=== PATIENT | female | born 1960 | race African-American/Black ===

== ENCOUNTER 2016-11-13 16:50 | Inpatient (IN) | payer MEDICARE ==
[2016-11-13] MEDS ORDERED: fentaNYL (PF) 50 MCG/ML 2 ML AMP ONE (16:56)
[2016-11-13] MEDS ORDERED: LIDOCAINE 2% INJ 20 MG/ML (20 ML MDV) ONE (16:56)
[2016-11-13] MEDS ORDERED: diphenhydrAMINE 50 MG/ML 1 ML VIAL ONE (16:56)
[2016-11-13] MEDS ORDERED: MIDAZOLAM 2 MG/2 ML VIAL ONE (16:56)
[2016-11-13] MEDS ORDERED: HYDROmorphone 1 MG/ML 1 ML SYRINGE IVP STA (16:58)
[2016-11-13] MEDS ORDERED: TICAGRELOR 90 MG TAB PO ONE (17:05)
[2016-11-13] MEDS ORDERED: IV FLUID CONTINUATION 1,000 ML IV ONE (17:05)
--- NOTE | 2016-11-13 17:08 | ED ---
Chest Pain HPI - General Chief Complaint: Chest Pain Stated Complaint: Stemi Time Seen by Provider: 11/13/16 16:50 Source: patient, family, RN/MD, EMS, RN notes reviewed Mode of arrival: EMS Limitations: no limitations - History of Present Illness Initial Comments: Is a 56-year-old female history of type 2 diabetes but no prior history of heart disease she is a nonsmoker no personal history of any lung problems who started having pain in her arms last evening today she had chest pain it was anterior. She went to [facility] and was evaluated there and found to have an anterior lateral ST elevation myocardial infarction. Cardiology was consulted the patient was transferred here for Signing Teacher. Patient was brought to this emergency Department is the cath team was being assembled. She complained of 9/10 retrosternal chest pain and pressure. She had no nausea or vomiting at this time she was treated for that earlier. She was started on a bolus of heparin was given morphine no nitroglycerin at the time. Patient was evaluated in the emergency department Dr. Burgos did come to the emergency department see the patient. Patient was ultimately taken to the labor relations specialist for evaluation. MD Complaint: chest pain - Related Data Allergies Allergy/AdvReac Type Severity Reaction Status Date / Time naproxen [From Aleve] Allergy Anaphylaxis Verified 11/13/16 16:53 Review of Systems ROS Statement: Those systems with pertinent positive or pertinent negative responses have been documented in the HPI. ROS Other: All systems not noted in ROS Statement are negative. EKG Findings - EKG Results: EKG: interpreted by ERMD (Sinus rhythm of 91 NM interval 184 QRS duration 136 QT /QTC of 368/[address] elevation seen in leads V1 and V2 and aVL leads 1 and some reciprocal changes noted in the inferior leads.) Past Medical History Past Medical History: Diabetes Mellitus Additional Past Medical History / Comment(s): anemia, back pain, ibs History of Any Multi-Drug Resistant Organisms: None Reported Past Surgical History: No Surgical Hx Reported Past Psychological History: No Psychological Hx Reported Smoking Status: Former smoker Past Alcohol Use History: None Reported Past Drug Use History: None Reported General Exam - General Exam Comments Initial Comments: This is a well-developed well-nourished awake alert oriented 3 female Limitations: no limitations General appearance: anxious, in distress Head exam: Present: atraumatic, normocephalic, normal inspection Eye exam: Present: normal appearance, PERRL, EOMI. Absent: scleral icterus, conjunctival injection, periorbital swelling ENT exam: Present: normal exam, mucous membranes moist Neck exam: Present: normal inspection. Absent: tenderness, meningismus, lymphadenopathy Respiratory exam: Present: normal lung sounds bilaterally. Absent: respiratory distress, wheezes, rales, rhonchi, stridor Cardiovascular Exam: Present: regular rate, normal rhythm, normal heart sounds. Absent: systolic murmur, diastolic murmur, rubs, gallop, clicks GI/Abdominal exam: Present: soft, normal bowel sounds, other (Obese abdomen). Absent: distended, tenderness, guarding, rebound, rigid Extremities exam: Present: normal inspection, full ROM, normal capillary refill. Absent: tenderness, pedal edema, joint swelling, calf tenderness Back exam: Present: normal inspection Neurological exam: Present: alert, oriented X3, CN II-XII intact Psychiatric exam: Present: normal affect, normal mood Skin exam: Present: warm, dry, intact, normal color. Absent: rash Course Vital Signs 11/13/16 16:53 Respiratory 18 Rate Blood Pressure 130/81 - Reevaluation(s) Reevaluation #1: 11/13/16 17:05 Did review the 12-lead EKG submitted by EMS which did show ST elevations in V1 and V2 V3 as well as leads 1 and lead aVL. Reciprocal changes noted in II, III , and F aVF. Reevaluation #2: 11/13/16 17:06 Nitropaste as well as IV Dilaudid was ordered for further pain control the patient blood pressure was adequate. Chest Pain MDM - MDM ER charting from the other facility was reviewed by me. I did review the 12- lead EKGs both from [facility] and that submitted by EMS. The patient was taken to the Signing Teacher 3 for definitive care. I did have a long discussion with her regarding the findings. Critical Care Time Critical Care Time: Yes Critical Care Time: 31 minutes which included discussion with the sending facility and physician. Monitoring EMS run and discussed with paramedics. History and physical and initial evaluation the patient in this emergency department. Discussion with cardiology. Documentation of the above. Disposition Clinical Impression: ST elevation myocardial infarction (STEMI), Chest pain Disposition: ADMITTED IP TO THIS HOSP Condition: Critical
[2016-11-13] MEDS ORDERED: TICAGRELOR 90 MG TAB ONE (17:09)
[2016-11-13] MEDS ORDERED: fentaNYL (PF) 50 MCG/ML 2 ML AMP IV ONE (17:10)
[2016-11-13] MEDS ORDERED: diphenhydrAMINE 50 MG/ML 1 ML VIAL IVP ONE (17:10)
[2016-11-13] MEDS ORDERED: MIDAZOLAM 2 MG/2 ML VIAL IVP ONE (17:10)
[2016-11-13] MEDS ORDERED: LIDOCAINE 2% INJ 20 MG/ML SQ ONE (17:12)
[2016-11-13] MEDS ORDERED: SODIUM CHLORIDE 0.9% 1,000 ML IV ONE (17:15)
[2016-11-13] MEDS ORDERED: METOPROLOL TARTRATE 5 MG/5 ML VIAL IVP ONE ×2 (17:17→17:18)
[2016-11-13] MEDS ORDERED: BIVALIRUDIN BOLUS 250 MG/50 ML IV ONE (17:25)
[2016-11-13] MEDS ORDERED: BIVALIRUDIN 250 MG in SODIUM CHLORIDE 0.9% 50 ML IV ONE ×2 (17:28→18:00)
[2016-11-13] MEDS ORDERED: niCARdipine Syringe (1,000 mcg/10 mL) INTRACORON ONE (18:02)
[2016-11-13] MEDS ORDERED: IODIXANOL 320 MG/ML 100 ML INTRAARTER ONE (18:14)
[2016-11-13] MEDS ORDERED: RX INFO: IV CONTRAST WAS GIVEN 1 EACH MISC MISCELLANE PRN (18:41)
[2016-11-13] MEDS ORDERED: MAG HYDROX/AL HYDROX/SIMETH 30 ML CUP PO PRN (18:41)
[2016-11-13] MEDS ORDERED: NITROGLYCERIN SL TABS 0.4 MG TAB SUBLINGUAL PRN (18:41)
[2016-11-13] MEDS ORDERED: ZOLPIDEM 5 MG TAB PO PRN (18:41)
[2016-11-13] MEDS ORDERED: SODIUM CHLORIDE 0.9% 1,000 ML IV SCH (18:45)
[2016-11-13 19:35] LABS: Glucose,Whole Blood 179 mg/dL (75-99)
[2016-11-13] MEDS ORDERED: ALPRAZolam 0.25 MG TAB PO PRN (21:03)
[2016-11-13] MEDS ORDERED: TEMAZEPAM 15 MG CAP PO PRN (21:03)
[2016-11-13 21:10] LABS: Glucose,Whole Blood 167 mg/dL (75-99)
[2016-11-13] MEDS: BACLOFEN 10 MG TAB PO SCH (21:58)
[2016-11-13] MEDS: ATORVASTATIN 80 MG TAB PO SCH (21:58)
[2016-11-13] MEDS: METOPROLOL TARTRATE 25 MG TAB PO SCH (21:58)
[2016-11-13] MEDS: HYDROcodone/APAP 5-325MG 1 EACH TAB PO PRN (21:58)
[2016-11-13] MEDS: PANTOPRAZOLE 40 MG TABLET PO SCH (21:58)
[2016-11-13] MEDS: INSULIN LISPRO (humaLOG) 300 UNIT/3 ML VIAL SQ SCH (21:59)
[2016-11-13 22:43] VITALS: BMI 35.6
[2016-11-13 22:51] LABS: Basophils % (A) 0 %; CH 25.7; CHCM 31.5; Eosinophils # (A) 0.1 k/uL (0-0.7); Eosinophils % (A) 1 %; HDW 2.46; HGB 13.4 gm/dL (11.4-16.0); Hypochromasia Slight; Luc # (Auto) 0.12; Luc % (Auto) 1; Lymphocytes # (A) 1.4 k/uL (1.0-4.8); Lymphocytes % (A) 13 %; MCH 24.4 pg (25.0-35.0); MCHC 29.9 g/dL (31.0-37.0); MCV 81.8 fL (80.0-100.0); Mean Platelet Volume 7.8; Monocytes # (A) 0.5 k/uL (0-1.0); Monocytes % (A) 5 %; Neutrophils # (A) 8.6 k/uL (1.3-7.7); Neutrophils % (A) 80 %; RDW 14.8 % (11.5-15.5); WBC 10.8 k/uL (3.8-10.6); WBC (Perox) 11.56
[2016-11-13 23:11] LABS: ALT 106 U/L (9-52); AST 664 U/L (14-36); Alkaline Phosphatase 91 U/L (38-126); Anion Gap 13 mmol/L; Blood Urea Nitrogen 13 mg/dL (7-17); Calcium 9.5 mg/dL (8.4-10.2); Carbon Dioxide 21 mmol/L (22-30); Chloride 107 mmol/L (98-107); Glucose 190 mg/dL (74-99); Non-African American GFR(MDRD) >60 (>60 ml/min/1.73 sqM); Potassium 4.6 mmol/L (3.5-5.1); Sodium 141 mmol/L (137-145); Total Bilirubin 0.5 mg/dL (0.2-1.3); Total Protein 6.9 g/dL (6.3-8.2)
[2016-11-14] MEDS: HYDROmorphone 1 MG/ML 1 ML SYRINGE IVP PRN ×2 (02:14→22:28)
[2016-11-14 05:00] LABS: Basophils % (A) 0 %; CH 25.2; CHCM 31.3; Eosinophils % (A) 0 %; HCT 43.9 % (34.0-46.0); HDW 2.45; HGB 13.5 gm/dL (11.4-16.0); Hypochromasia Slight; Luc # (Auto) 0.15; Luc % (Auto) 1; Lymphocytes # (A) 1.5 k/uL (1.0-4.8); Lymphocytes % (A) 13 %; MCH 24.8 pg (25.0-35.0); MCHC 30.7 g/dL (31.0-37.0); MCV 80.9 fL (80.0-100.0); Mean Platelet Volume 7.9; Monocytes # (A) 0.6 k/uL (0-1.0); Monocytes % (A) 6 %; Neutrophils % (A) 79 %; RBC 5.43 m/uL (3.80-5.40); RDW 14.7 % (11.5-15.5); WBC 11.4 k/uL (3.8-10.6); WBC (Perox) 11.48
[2016-11-14 05:19] LABS: Anion Gap 12 mmol/L; Blood Urea Nitrogen 13 mg/dL (7-17); Calcium 9.3 mg/dL (8.4-10.2); Carbon Dioxide 20 mmol/L (22-30); Chloride 109 mmol/L (98-107); Cholesterol 182 mg/dL (<200); Glucose 174 mg/dL (74-99); HDL Cholesterol 59 mg/dL (40-60); Magnesium 1.8 mg/dL (1.6-2.3); Non-African American GFR(MDRD) >60 (>60 ml/min/1.73 sqM); Sodium 141 mmol/L (137-145); Triglycerides 80 mg/dL (<150)
[2016-11-14] MEDS: MAGNESIUM SULFATE-D5W PMX 1 GM in DEXTROSE/WATER 1 100ML.BAG IVPB SCH ×2 (06:21→08:00)
[2016-11-14 07:27] LABS: Glucose,Whole Blood 192 mg/dL (75-99)
--- NOTE | 2016-11-14 07:48 | XR ---
EXAMINATION TYPE: XR chest 1V portable DATE OF EXAM: 11/14/2016 6:47 AM CLINICAL HISTORY: Difficulty breathing and CHF progress study. TECHNIQUE: Single AP portable upright view of the chest is obtained. COMPARISON: None FINDINGS: The heart size is likely enlarged. There is mild central vascular congestion felt present. There is no suspicious focal airspace opacity, pleural effusion, or pneumothorax seen. Osseous struc tures are intact. IMPRESSION: Consider CHF exacerbation as there is mild cardiomegaly with mild central vascular conges tion felt present.
[2016-11-14] MEDS: INSULIN LISPRO (humaLOG) 300 UNIT/3 ML VIAL SQ SCH ×4 (08:00→22:29)
[2016-11-14] MEDS: BACLOFEN 10 MG TAB PO SCH ×3 (08:01→22:29)
[2016-11-14] MEDS: TICAGRELOR 90 MG TAB PO SCH ×2 (08:01→22:29)
[2016-11-14] MEDS: PANTOPRAZOLE 40 MG TABLET PO SCH (08:01)
[2016-11-14] MEDS: ASPIRIN 81 MG CHEW PO SCH (08:01)
[2016-11-14] MEDS: METOPROLOL TARTRATE 25 MG TAB PO SCH (08:44)
[2016-11-14] MEDS: LISINOPRIL 10 MG TAB PO SCH (09:49)
[2016-11-14] MEDS: HYDROcodone/APAP 5-325MG 1 EACH TAB PO PRN ×2 (09:56→19:41)
--- NOTE | 2016-11-14 10:35 | CONS ---
DATE OF CONSULTATION: Mrs. Dempsey is 54-year-old female who transfer from [facility]. The patient presented to the emergency room with back pain and shoulder pain and vomiting. This patient presented to the emergency room with the complaint of back pain and shoulder pain. The patient was feeling nauseated. Patient did not feel that she did not have any significant shortness of breath and did not complain of any chest pain. This patient has a history of diabetes, IBS and a history of anemia. SOCIAL HISTORY: Patient does not smoke. FAMILY HISTORY: Unremarkable. There is no family history of premature coronary artery disease. Home medications are not available. PHYSICAL EXAMINATION: At present reveals a 54-year-old obesely built female who at present is having moderate degree of back pain. Blood pressure is 160/90 mmHg HEENT examination is negative. Neck is supple. There is no increase in jugular venous pressure. Both the carotid pulses are felt. There is no bruit. Chest is symmetrical. HEART: The PMI is not felt. First and second heart sounds are normal. There is no evidence of any murmur. Lungs are clinically clear to auscultation and percussion. ABDOMEN: Soft. Liver and spleen are not enlarged. Bowel sounds are heard. EXTREMITIES: Peripheral pulsations are 1+. EKG shows evidence of acute anterior wall myocardial infarction with a right bundle branch block pattern. FINAL IMPRESSION: This patient has presented with back pain and shoulder pain. EKG is suggestive of acute anterior wall myocardial infarction. Patient is advised urgent cardiac catheterization.
[2016-11-14 11:24] LABS: Glucose,Whole Blood 186 mg/dL (75-99)
--- NOTE | 2016-11-14 11:35 | ECHOF ---
Referral Reason:stemi MEASUREMENTS -------- HEIGHT: 165.1 cm WEIGHT: 96.6 kg BP: 149/86 RVIDd: 2.6 cm (< 3.3) IVSd: 1.4 cm (0.6 - 1.1) LVIDd: 3.6 cm (3.9 - 5.3) LVPWd: 1.3 cm (0.6 - 1.1) IVSs: 1.6 cm LVIDs: 3.1 cm LVPWs: 1.6 cm LA Diam: 3.0 cm (2.7 - 3.8) LAESV Index (A-L): 16.68 ml/m Ao Diam: 2.9 cm (2.0 - 3.7) AV Cusp: 1.9 cm (1.5 - 2.6) MV EXCURSION: 15.792 mm (> 18.000) MV EF SLOPE: 156 mm/s (70 - 150) EPSS: 1.0 cm MV E Kp: 1.16 m/s MV DecT: 83 ms MV A Kp: 0.50 m/s MV E/A Ratio: 2.34 RAP: 5.00 mmHg RVSP: 33.76 mmHg FINDINGS -------- Resting tachycardia (HR>100bpm). This was a technically adequate study. The left ventricular size is normal. There is moderate concentric left ventricular hypertrophy. Overall left ventricular systolic function is severely impaired with, an EF between 20 - 25 %. Mid lateral LV wall motion is hypokinetic. Mid inferoseptal LV wall motion is hypokinetic. Mid anteroseptal LV wall motion is hypokinetic. Apical anterior LV wall motion is akinetic. Apical lateral LV wall motion is akinetic. Apical inferior LV wall motion is akinetic. Apical septum LV wall motion is akinetic. The right ventricle is normal in size and function. The left atrium is normal in size. Normal LA size by volume 22+/-6 ml/m2. The right atrium is normal in size. 1.5mg of Definity was utilized for enhancement of images The aortic valve is trileaflet and appears structurally normal. Mild mitral annular calcification present. There is trace mitral regurgitation. Mild tricuspid regurgitation present. Right ventricular systolic pressure is normal at < 35 mmHg. The right ventricular systolic pressure, as measured by Doppler, is 33.76mmHg. Trace/mild (physiologic) pulmonic regurgitation. The aortic root size is normal. There is no pericardial effusion. CONCLUSIONS -------- 1. Resting tachycardia (HR>100bpm). 2. Apical lateral LV wall motion is akinetic. 3. Apical inferior LV wall motion is akinetic. 4. Apical septum LV wall motion is akinetic. 5. The right ventricle is normal in size and function. 6. Normal LA size by volume 22+/-6 ml/m2. 7. The right atrium is normal in size. 8. 1.5mg of Definity was utilized for enhancement of images 9. The aortic valve is trileaflet and appears structurally normal. 10. Mild mitral annular calcification present. 11. There is trace mitral regurgitation. 12. This was a technically adequate study. 13. Mild tricuspid regurgitation present. 14. Right ventricular systolic pressure is normal at < 35 mmHg. 15. The right ventricular systolic pressure, as measured by Doppler, is 33.76mmHg. 16. Trace/mild (physiologic) pulmonic regurgitation. 17. The aortic root size is normal. 18. There is no pericardial effusion. 19. The left ventricular size is normal. 20. There is moderate concentric left ventricular hypertrophy. 21. Overall left ventricular systolic function is severely impaired with, an EF between 20 - 25 %. 22. Mid lateral LV wall motion is hypokinetic. 23. Mid inferoseptal LV wall motion is hypokinetic. 24. Mid anteroseptal LV wall motion is hypokinetic. 25. Apical anterior LV wall motion is akinetic. COUNSELING CENTER MANAGER: Elmira Almanza RDCS
[2016-11-14] MEDS: FERROUS SULFATE 325 MG TAB PO SCH (12:35)
[2016-11-14 12:46] LABS: Hemoglobin A1C 7.6 % (4.2-6.1)
--- NOTE | 2016-11-14 15:13 | P.PN ---
Subjective Principal diagnosis: Acute anterior ST elevation NM This is a pleasant 56-year-old -Ind[place] female patient who presented to the hospital with a chest discomfort and was diagnosed with acute anterior ST patient myocardial infarction. She underwent a heart catheterization and was found to have acute total occlusion of the ostial LAD which was opened and stented with a good angiographic results. Clinically she denies having any chest pain or discomfort or difficulty breathing or heart racing or fluttering. The echocardiogram showed severely impaired LV function with an ejection fraction of 20-25%. Objective - Vital Signs Vital signs: Vital Signs Temp 98.1 F 11/14/16 12:00 Pulse 110 H 11/14/16 15:00 Resp 24 11/14/16 15:00 BP 123/78 11/14/16 15:00 Pulse Ox 94 L 11/14/16 15:00 Intake & Output 11/13/16 11/14/16 11/14/16 18:59 06:59 18:59 Intake Total 318 1160 100 Output Total 1250 275 Balance 318 -90 -175 Weight 96.9 kg Intake: IV 318 1100 100 Magnesium Sulfate-D5w Pmx 100 100 1 gm In Dextrose/Water 1 100ml.bag @ 100 mls/hr IVPB Q1H PAMELA Rx#: [id number] Sodium Chloride 0.9% 1, 1000 000 ml @ 100 mls/hr IV . Q10H PAMELA Rx#:[id number] Oral 60 Output: Urine 1250 275 Other: Voiding Method Bedpan Bedside Commode # Voids 1 - Constitutional General appearance: Present: no acute distress - Respiratory Respiratory: bilateral: CTA - Cardiovascular Rhythm: regular Heart sounds: normal: S1, S2 - Labs CBC & Chem 7: 11/14/16 04:08 11/14/16 04:08 Labs: Abnormal Lab Results - Last 24 Hours (Table) 11/13/16 11/13/16 11/13/16 Range/Units 19:33 21:07 22:38 WBC 10.8 H (3.8-10.6) k/uL RBC 5.50 H (3.80-5.40) m/uL MCH 24.4 L (25.0-35.0) pg MCHC 29.9 L (31.0-37.0) g/dL Neutrophils # 8.6 H (1.3-7.7) k/uL Chloride (98-107) mmol/L Carbon Dioxide (22-30) mmol/L Glucose (74-99) mg/dL POC Glucose (mg/dL) 179 H 167 H (75-99) mg/dL Hemoglobin A1c (4.2-6.1) % AST (14-36) U/L ALT (9-52) U/L LDL Cholesterol, Calc (0-99) mg/dL 11/13/16 11/14/16 11/14/16 Range/Units 22:38 04:08 04:08 WBC 11.4 H (3.8-10.6) k/uL RBC 5.43 H (3.80-5.40) m/uL MCH 24.8 L (25.0-35.0) pg MCHC 30.7 L (31.0-37.0) g/dL Neutrophils # 9.0 H (1.3-7.7) k/uL Chloride (98-107) mmol/L Carbon Dioxide 21 L (22-30) mmol/L Glucose 190 H (74-99) mg/dL POC Glucose (mg/dL) (75-99) mg/dL Hemoglobin A1c 7.6 H (4.2-6.1) % AST 664 H (14-36) U/L ALT 106 H (9-52) U/L LDL Cholesterol, Calc (0-99) mg/dL 11/14/16 11/14/16 11/14/16 Range/Units 04:08 07:24 11:21 WBC (3.8-10.6) k/uL RBC (3.80-5.40) m/uL MCH (25.0-35.0) pg MCHC (31.0-37.0) g/dL Neutrophils # (1.3-7.7) k/uL Chloride 109 H (98-107) mmol/L Carbon Dioxide 20 L (22-30) mmol/L Glucose 174 H (74-99) mg/dL POC Glucose (mg/dL) 192 H 186 H (75-99) mg/dL Hemoglobin A1c (4.2-6.1) % AST (14-36) U/L ALT (9-52) U/L LDL Cholesterol, Calc 107 H (0-99) mg/dL Assessment and Plan Plan: Assessment #1 acute anterior NM and status post PCI of the LAD #2 severe ischemic cardiomyopathy Plan #1 continue the dual antiplatelet therapy #2 increase the dose of metoprolol for better heart rate control #3 ICU monitoring for additional 24 hours
[2016-11-14] MEDS ORDERED: METOPROLOL TARTRATE 25 MG TAB PO ONE (15:15)
[2016-11-14 17:47] LABS: Appearance,Urine Cloudy (Clear); Bacteria,Urine Moderate /hpf; Bilirubin,Urine Negative (Negative); Glucose,Urine (UA) Negative (Negative); Ketones,Urine Negative (Negative); Leukocyte Esterase,Urine Negative (Negative); Mucus,Urine Occasional /hpf; Nitrite,Urine Negative (Negative); PH, Urine 6.5 (5.0-8.0); Particle Count 54107; Protein,Urine Negative (Negative); RBC,Urine >182 /hpf (0-5); Squamous Epithelial Cell,Urine 5 /hpf (0-4); UA Billing (MACRO vs. MICRO) MICRO; Urobilinogen,Urine <2.0 mg/dL (<2.0); WBC,Urine 5 /hpf (0-5)
--- NOTE | 2016-11-14 17:47 | HP ---
DATE OF ADMISSION: 11/13/2016 CHIEF COMPLAINT: Chest pain, back pain and abdominal pain and shoulder pain. HISTORY OF PRESENT ILLNESS: This 56-year-old woman with a past medical history of diabetes, history of anemia, history of back pain, being followed by Dr. Quijano in the outpatient setting, today had severe back pain, shoulder pain, left arm pain and abdominal pain. The patient came to [facility]. The EKG showed hyperacute anterior wall myocardial infarction. The patient underwent a cardiac catheterization and LAD stent. The patient being closely monitored in the ICU at this time. There is no history of fever, rigors or chills. No history of headache, loss of consciousness or seizures. No history of any hematochezia, melena at this time. Past medical history: Diabetes, anemia, back pain. History of nicotine dependence. MEDICATIONS: Prior to admission includes: 1. Glucophage 500 mg p.o. b.i.d. 2. Iron sulfate 320 mg daily. 3. Lioresal 10 mg t.i.d. ALLERGIES: NAPROSYN. FAMILY HISTORY: History of coronary artery disease in the father and mother. SOCIAL HISTORY: Remote history of smoking. No history of alcohol intake. REVIEW OF SYSTEMS: HEENT: No diminished vision. No diminished hearing. CARDIOVASCULAR: As mentioned earlier. RESPIRATORY: As mentioned earlier. GI: No nausea or vomiting. : No dysuria. Nervous system: No numbness or weakness. Allergy/immunology: No asthma or hayfever. MUSCULOSKELETAL: As mentioned earlier. HEMATOLOGY/ONCOLOGY: No history of anemia. ENDOCRINE: As mentioned earlier. CONSTITUTIONAL: As mentioned earlier. DERMATOLOGY: Negative. RHEUMATOLOGY: Negative. PSYCHIATRY: As mentioned earlier. PHYSICAL EXAMINATION: The patient is alert and oriented times three. Pulse is 95, blood pressure 130/83, respirations 20, temperature 97.9, pulse ox 94% on 2 L. HEENT: Conjunctivae normal. NECK: No jugular venous distention. CARDIOVASCULAR: S1, S2 muffled. RESPIRATORY: Breath sounds diminished at the bases. No rhonchi, no crackles. ABDOMEN: Soft, nontender. No mass palpable. LEGS: No edema. No swelling. CENTRAL NERVOUS SYSTEM: Higher functions as mentioned earlier. Moves all four limbs. No focal deficits. LYMPHATICS: No lymph nodes palpable in the neck, axillae or groin. SKIN: No ulcer, rash or bleeding. LABS: Glucose 179. ASSESSMENT: 1. Acute anterior myocardial infarction, status post cardiac catheterization and left anterior descending coronary artery stenting. 2. Type 2 diabetes mellitus. 3. Remote history of nicotine dependence. 4. History of degenerative joint disease and back pain. 5. History of anemia. 6. FULL CODE. RECOMMENDATIONS AND DISCUSSION: In this 56-year-old gentleman who was admitted with acute myocardial infarction, at this time, I recommend to continue current medications, continue symptomatic treatment. Cardiology has seen the patient. I recommend Accu-Cheks a.c. and insulin to scale also. Continue with bella inhibitors and beta blockers as well as Lipitor. Dual antiplatelet treatment. Closely follow with cardiology. Prognosis guarded. See orders for further details. Resume the home medications. DVT prophylaxis. A copy of dictation being forwarded to Dr. Quijano who is the primary care physician. Discussed with the patient who understands and agrees.
--- NOTE | 2016-11-14 18:18 | CC ---
DATE OF SERVICE: This patient presented to the [facility] with chest pain. EKG was suggestive of acute anterior wall myocardial infarction and the patient was transferred over here and was taken to the cardiac catheterization. PROCEDURE: The right groin was prepped and draped in the usual manner and the skin was infiltrated with 2% Xylocaine. The right femoral artery was entered using Seldinger technique. A #6 Guyanese sheath was placed in. Selective coronary angiography was then performed in multiple. SELECTIVE CORONARY ANGIOGRAPHY: LEFT MAIN: Left main coronary artery is normal and patent. There is a nondominant circumflex coronary artery. CIRCUMFLEX CORONARY ARTERY: Circumflex coronary artery nondominant and is normal. LEFT ANTERIOR DESCENDING CORONARY ARTERY: LAD is a good caliber blood vessel and there is a good-sized intermediate branch and ostial LAD and proximal LAD has clot in its proximal midportion with 99% stenosis. There is a slow filling of the distal LAD noted. RIGHT CORONARY ARTERY: Right coronary arteries are normal caliber blood vessels and gives rise to good-sized posterior descending artery. Right coronary artery and its branches are normal. FINAL IMPRESSION: This study reveals a 99% stenosis of the proximal LAD with evidence of clot, a remote possibility of dissection could be considered. Circumflex coronary artery is nondominant. Right coronary artery is normal. RECOMMENDATIONS: Films were reviewed with Dr. Romo and we will proceed to attempt stent to the LAD.
[2016-11-14 18:27] LABS: Glucose,Whole Blood 174 mg/dL (75-99)
--- NOTE | 2016-11-14 18:41 | PTCA ---
DATE OF SERVICE: 11/13/2016 PERFORMING PHYSICIAN: Carlo Romo M.D., sales administration specialist. PROCEDURES PERFORMED: 1. Aspiration thrombectomy from the proximal left anterior descending artery. 2. Successful stenting of the proximal left anterior descending artery using a 3.0 x 18 mm Xience JOSHUA which was post dilated using 3.5 mm noncompliant balloon, with good angiographic results. INDICATION: This is a pleasant 56-year-old -Vietnamese female patient with diabetes who presented to [facility] with chest discomfort and was thought to have an acute anterior ST-elevation myocardial infarction. She underwent a heart catheterization by Dr. Jesse Burgos and was found to have a totally occluded proximal left anterior descending artery by the ostium with thrombus formation. APPROACH: Right common femoral artery. COMPLICATIONS: None. LEVEL OF SEDATION: Moderate. PROCEDURE DESCRIPTION: Please refer to the diagnostic heart catheterization that was performed by Dr. Jesse Burgos. Anticoagulation was initiated using Angiomax. Subsequently I engaged the left main using a JL4 catheter. Subsequently I crossed the total occlusion of the proximal LAD using a Whisper wire. After that I did aspiration thrombectomy from the proximal left anterior descending artery using an [place] catheter. After that I did balloon angioplasty of the proximal LAD using a 2.5 x 12 mm balloon. After that I deployed a 3.0 x 18 mm Xience JOSHUA, where the stent was positioned under fluoroscopic guidance and then it was deployed under its nominal pressure. After that I post dilated that stent using a 3.5 x 12 mm NC balloon which was inflated under 18 atmospheres for 20 seconds. The following angiogram showed good angiographic results without perforation and without dissection with MELISSA-3 flow. CONCLUSION: 1. Acute anterior ST-elevation myocardial infarction. 2. Acute total occlusion of the ostial left anterior descending artery with a plaque rupture and thrombus formation. 3. Successful aspiration thrombectomy from the proximal left anterior descending artery. 4. Successful stenting of the ostial and proximal left anterior descending artery using a 3.0 x 18 mm JOSHUA which was post dilated using a 3.5 mm balloon with good angiographic results. POST-PROCEDURE MANAGEMENT: 1. Dual antiplatelet therapy. 2. Risk factor modification. 3. Followup with the patient.
[2016-11-14 22:26] LABS: Glucose,Whole Blood 133 mg/dL (75-99)
[2016-11-14] MEDS: ATORVASTATIN 80 MG TAB PO SCH (22:29)
[2016-11-14] MEDS: METOPROLOL TARTRATE 50 MG TAB PO SCH (22:29)
[2016-11-15 05:00] LABS: Basophils # (A) 0.1 k/uL (0-0.2); Basophils % (A) 0 %; CHCM 31.2; Eosinophils # (A) 0.1 k/uL (0-0.7); Eosinophils % (A) 1 %; HCT 45.7 % (34.0-46.0); HDW 2.42; HGB 14.1 gm/dL (11.4-16.0); Hypochromasia Slight; Luc # (Auto) 0.23; Luc % (Auto) 2; Lymphocytes # (A) 1.4 k/uL (1.0-4.8); Lymphocytes % (A) 10 %; MCH 24.9 pg (25.0-35.0); MCHC 30.9 g/dL (31.0-37.0); MCV 80.5 fL (80.0-100.0); Monocytes # (A) 0.9 k/uL (0-1.0); Monocytes % (A) 6 %; Neutrophils # (A) 11.8 k/uL (1.3-7.7); Neutrophils % (A) 82 %; RBC 5.68 m/uL (3.80-5.40); RDW 14.6 % (11.5-15.5); WBC 14.4 k/uL (3.8-10.6); WBC (Perox) 14.58
[2016-11-15 05:15] LABS: Anion Gap 15 mmol/L; Blood Urea Nitrogen 11 mg/dL (7-17); Calcium 9.7 mg/dL (8.4-10.2); Carbon Dioxide 21 mmol/L (22-30); Chloride 105 mmol/L (98-107); Glucose 167 mg/dL (74-99); Non-African American GFR(MDRD) >60 (>60 ml/min/1.73 sqM); Potassium 4.8 mmol/L (3.5-5.1); Sodium 141 mmol/L (137-145)
[2016-11-15] MEDS: HYDROcodone/APAP 5-325MG 1 EACH TAB PO PRN ×3 (06:18→20:47)
[2016-11-15 07:21] LABS: Glucose,Whole Blood 193 mg/dL (75-99)
--- NOTE | 2016-11-15 07:55 | PN ---
DATE OF SERVICE: 11/14/2016 This 56-year-old woman who was admitted with chest pain, back pain as well as shoulder pain also had acute anterior wall ST segment elevation myocardial infarction. The patient underwent cardiac catheterization as well as successful laceration of thrombectomy from proximal LAD and as well as successful stenting of the ostial and proximal left anterior descending artery using drug-eluting stent by Dr. Romo. The patient is being closely monitored. The patient complains of left shoulder pain. The repeat chest x-ray this morning showed some CHF. Otherwise a 2-D echo with Doppler was also noted which showed ejection fraction about 20% to 25% and multiple motion abnormalities also. The patient is being closely monitored in the ICU. PAST MEDICAL HISTORY: Reviewed. REVIEW OF SYSTEMS: CARDIOVASCULAR: S1 and S2, muffled. RESPIRATORY: As mentioned earlier. GI: No nausea. : No dysuria. NERVOUS SYSTEM: No numbness or weakness. Current medications are reviewed and include: 1. [place] 5 mg q.6 p.r.n. 2. Maalox 30 mL q.4 p.r.n. 3. Xanax 0.25 t.i.d. p.r.n. 4. Aspirin 81 mg. 5. Lipitor 80 mg q.h.s. 6. Lioresal 10 mg t.i.d. 7. Iron sulfate 325 mg daily. 8. Dilaudid 0.5 mg q.3 p.r.n. 9. Humalog scale. 10. Zestril 10 mg p.o. daily. 11. Nitrostat. 12. Protonix. 13. Restoril. 14. Brilinta. 15. Ambien. PHYSICAL EXAMINATION: The patient is alert and oriented x3. The pulse is 109, blood pressure 127/81, respirations 16, temperature normal, pulse ox 95% on 2 L. HEENT: Conjunctivae normal. Oral mucosa moist. NECK: No jugular venous distention. No carotid bruit. No lymph node enlargement. CARDIOVASCULAR: S1 and S2, muffled. RESPIRATORY: Breath sounds diminished at the bases. A few scattered rhonchi, no crackles. Abdomen is soft, nontender. LEGS: No edema, no swelling. NERVOUS SYSTEM: No focal deficits. LABS: WBC 11.4, hemoglobin is 13.5. Otherwise, glucose 133. Troponins 55. LDL is 107. ASSESSMENT: 1. Acute anterior wall myocardial infarction, status post cardiac catheterization, thrombus aspiration as well as left anterior descending artery stenting with drug-eluting stenting. 2. Congestive heart failure acute exacerbation with acute systolic dysfunction, ejection fraction 20% to 25%, diffuse wall motion abnormalities. 3. Diabetes mellitus type 2. 4. Remote history of nicotine dependence. 5. Hyperlipidemia with increased LDL. 6. History of degenerative joint disease and back pain. 7. History of anemia. 8. FULL CODE. RECOMMENDATIONS AND DISCUSSION: This 56-year-old woman presented with multiple complex medical issues, we will monitor the patient closely. Continue the current medications. Continue symptomatic treatment. Otherwise, at this time I would recommend continue with antiplatelet agents, monitor fluid and electrolyte balance monitor closely. Otherwise continue with dual antiplatelet agents, beta blockers, BREE inhibitors, nitro, Protonix, DVT prophylaxis. Closely follow with Cardiology. Guarded prognosis because of multiple complex medical issues. Further recommendations to follow. MTDD
[2016-11-15] MEDS: INSULIN LISPRO (humaLOG) 300 UNIT/3 ML VIAL SQ SCH ×4 (08:23→22:01)
[2016-11-15] MEDS: ASPIRIN 81 MG CHEW PO SCH (08:26)
[2016-11-15] MEDS: PANTOPRAZOLE 40 MG TABLET PO SCH (08:26)
[2016-11-15] MEDS: BACLOFEN 10 MG TAB PO SCH ×3 (08:27→22:01)
[2016-11-15] MEDS: TICAGRELOR 90 MG TAB PO SCH ×2 (08:28→20:48)
[2016-11-15] MEDS: LISINOPRIL 10 MG TAB PO SCH (08:28)
[2016-11-15] MEDS: METOPROLOL TARTRATE 50 MG TAB PO SCH ×2 (10:00→20:48)
--- NOTE | 2016-11-15 11:23 | P.PN ---
Subjective Principal diagnosis: Acute anterior ST elevation LA This is a pleasant 56-year-old -Romanian female patient who presented to the hospital with a chest discomfort and was diagnosed with acute anterior ST patient myocardial infarction. She underwent a heart catheterization and was found to have acute total occlusion of the ostial LAD which was opened and stented with a good angiographic results. Clinically she denies having any chest pain or discomfort or difficulty breathing or heart racing or fluttering. The echocardiogram showed severely impaired LV function with an ejection fraction of 20-25%. I'll follow-up with the patient today, she denies having any chest pain or chest discomfort but she continues to have left arm discomfort. Hemodynamically she continues to be stable with sinus tachycardia. Objective - Vital Signs Vital signs: Vital Signs Temp 98.3 F 11/15/16 08:00 Pulse 119 H 11/15/16 09:00 Resp 22 11/15/16 09:00 BP 116/64 11/15/16 09:00 Pulse Ox 98 11/15/16 09:00 Intake & Output 11/14/16 11/15/16 11/15/16 18:59 06:59 18:59 Intake Total 100 90 30 Output Total 275 1625 0 Balance -175 -1535 30 Weight 94.7 kg Intake: IV 100 Magnesium Sulfate-D5w Pmx 100 1 gm In Dextrose/Water 1 100ml.bag @ 100 mls/hr IVPB Q1H PAMELA Rx#: [id number] Oral 90 30 Output: Urine 275 1625 0 Other: Voiding Method Bedside Commode Bedside Commode Bedside Commode # Voids 0 0 0 - Constitutional General appearance: Present: no acute distress - Respiratory Respiratory: bilateral: CTA - Cardiovascular Rhythm: regular Heart sounds: normal: S1, S2 - Labs CBC & Chem 7: 11/15/16 04:11 11/15/16 04:11 Labs: Abnormal Lab Results - Last 24 Hours (Table) 11/14/16 11/14/16 11/14/16 Range/Units 04:08 11:21 14:55 WBC (3.8-10.6) k/uL RBC (3.80-5.40) m/uL MCH (25.0-35.0) pg MCHC (31.0-37.0) g/dL Neutrophils # (1.3-7.7) k/uL Carbon Dioxide (22-30) mmol/L Glucose (74-99) mg/dL POC Glucose (mg/dL) 186 H (75-99) mg/dL Hemoglobin A1c 7.6 H (4.2-6.1) % Troponin I 63.600 H* (0.000-0.034) ng/mL Urine Appearance (Clear) Urine RBC (0-5) /hpf Ur Squamous Epith Cells (0-4) /hpf Urine Bacteria (None) /hpf Urine Mucus (None) /hpf 11/14/16 11/14/16 11/14/16 Range/Units 17:27 18:14 20:18 WBC (3.8-10.6) k/uL RBC (3.80-5.40) m/uL MCH (25.0-35.0) pg MCHC (31.0-37.0) g/dL Neutrophils # (1.3-7.7) k/uL Carbon Dioxide (22-30) mmol/L Glucose (74-99) mg/dL POC Glucose (mg/dL) 174 H (75-99) mg/dL Hemoglobin A1c (4.2-6.1) % Troponin I 55.000 H* (0.000-0.034) ng/mL Urine Appearance Cloudy H (Clear) Urine RBC >182 H (0-5) /hpf Ur Squamous Epith Cells 5 H (0-4) /hpf Urine Bacteria Moderate H (None) /hpf Urine Mucus Occasional H (None) /hpf 11/14/16 11/15/16 11/15/16 Range/Units 22:24 04:11 04:11 WBC 14.4 H (3.8-10.6) k/uL RBC 5.68 H (3.80-5.40) m/uL MCH 24.9 L (25.0-35.0) pg MCHC 30.9 L (31.0-37.0) g/dL Neutrophils # 11.8 H (1.3-7.7) k/uL Carbon Dioxide 21 L (22-30) mmol/L Glucose 167 H (74-99) mg/dL POC Glucose (mg/dL) 133 H (75-99) mg/dL Hemoglobin A1c (4.2-6.1) % Troponin I (0.000-0.034) ng/mL Urine Appearance (Clear) Urine RBC (0-5) /hpf Ur Squamous Epith Cells (0-4) /hpf Urine Bacteria (None) /hpf Urine Mucus (None) /hpf 11/15/16 11/15/16 Range/Units 04:11 07:19 WBC (3.8-10.6) k/uL RBC (3.80-5.40) m/uL MCH (25.0-35.0) pg MCHC (31.0-37.0) g/dL Neutrophils # (1.3-7.7) k/uL Carbon Dioxide (22-30) mmol/L Glucose (74-99) mg/dL POC Glucose (mg/dL) 193 H (75-99) mg/dL Hemoglobin A1c (4.2-6.1) % Troponin I 48.300 H* (0.000-0.034) ng/mL Urine Appearance (Clear) Urine RBC (0-5) /hpf Ur Squamous Epith Cells (0-4) /hpf Urine Bacteria (None) /hpf Urine Mucus (None) /hpf Assessment and Plan Plan: Assessment #1 acute anterior LA and status post PCI of the LAD #2 severe ischemic cardiomyopathy Plan #1 continue the dual antiplatelet therapy #2 increase the dose of metoprolol for better heart rate control #3 the patient can be transferred to [facility]
[2016-11-15 11:49] LABS: Glucose,Whole Blood 218 mg/dL (75-99)
[2016-11-15] MEDS: FERROUS SULFATE 325 MG TAB PO SCH (13:15)
[2016-11-15 16:43] LABS: Glucose,Whole Blood 165 mg/dL (75-99)
--- NOTE | 2016-11-15 20:34 | P.PN ---
Subjective 56 yr old female with h/o of HTN is admitted to the hospital with chest pain, was noted to have STEMI, underwent a LAD PCI/PTCA. Currently states to have a left shoulder pain worse with movement above 90deg. NO other overnight events reported. Objective - Vital Signs Vital signs: Vital Signs Temp 98.2 F 11/15/16 16:00 Pulse 108 H 11/15/16 16:00 Resp 18 11/15/16 16:00 BP 113/73 11/15/16 16:00 Pulse Ox 98 11/15/16 16:00 Intake & Output 11/15/16 11/15/16 11/16/16 06:59 18:59 06:59 Intake Total 90 60 Output Total 1625 0 Balance -1535 60 Weight 94.7 kg Intake: Oral 90 60 Output: Urine 1625 0 Other: Voiding Method Bedside Commode Bedside Commode # Voids 0 1 - Exam Gen: a & O times 3, in no distress. Lungs CTA, b/l no rhochi, wheezing, crackless HEart RRR, no murmurs appreciated. Abdomen soft non tender no organomegaly. Ext: no edema appreciated Musculoskeletal: tenderness anteriorly on the left shoulder. Supraspinatous tendonitis Neuro no focal motor or sensory deficits appreciated. - Labs CBC & Chem 7: 11/15/16 04:11 11/15/16 04:11 Labs: Abnormal Lab Results - Last 24 Hours (Table) 11/14/16 11/14/16 11/15/16 Range/Units 20:18 22:24 04:11 WBC 14.4 H (3.8-10.6) k/uL RBC 5.68 H (3.80-5.40) m/uL MCH 24.9 L (25.0-35.0) pg MCHC 30.9 L (31.0-37.0) g/dL Neutrophils # 11.8 H (1.3-7.7) k/uL Carbon Dioxide (22-30) mmol/L Glucose (74-99) mg/dL POC Glucose (mg/dL) 133 H (75-99) mg/dL Troponin I 55.000 H* (0.000-0.034) ng/mL 11/15/16 11/15/16 11/15/16 Range/Units 04:11 04:11 07:19 WBC (3.8-10.6) k/uL RBC (3.80-5.40) m/uL MCH (25.0-35.0) pg MCHC (31.0-37.0) g/dL Neutrophils # (1.3-7.7) k/uL Carbon Dioxide 21 L (22-30) mmol/L Glucose 167 H (74-99) mg/dL POC Glucose (mg/dL) 193 H (75-99) mg/dL Troponin I 48.300 H* (0.000-0.034) ng/mL 11/15/16 11/15/16 Range/Units 11:47 16:41 WBC (3.8-10.6) k/uL RBC (3.80-5.40) m/uL MCH (25.0-35.0) pg MCHC (31.0-37.0) g/dL Neutrophils # (1.3-7.7) k/uL Carbon Dioxide (22-30) mmol/L Glucose (74-99) mg/dL POC Glucose (mg/dL) 218 H 165 H (75-99) mg/dL Troponin I (0.000-0.034) ng/mL Assessment and Plan Plan: 1. STEMI, s/p PTCA and PCI 2. HTN 3. Left shoulder tendonitis. 4. Sinus tachycardia 5. Iron deficiency anemia 6. Obesity. 7. Dyslipidemia Plan Groin care DAPT ACEI, B paco Telemetry monitering. ambualte as tolerated.
[2016-11-15] MEDS: ATORVASTATIN 80 MG TAB PO SCH (20:47)
[2016-11-15 21:02] LABS: Glucose,Whole Blood 158 mg/dL (75-99)
[2016-11-16] MEDS: HYDROcodone/APAP 5-325MG 1 EACH TAB PO PRN ×3 (04:58→20:32)
[2016-11-16 06:40] LABS: Glucose,Whole Blood 144 mg/dL (75-99)
[2016-11-16 06:40] LABS: Basophils % (A) 0 %; CH 25.2; Eosinophils # (A) 0.3 k/uL (0-0.7); Eosinophils % (A) 3 %; HCT 44.3 % (34.0-46.0); HDW 2.46; HGB 13.9 gm/dL (11.4-16.0); Luc # (Auto) 0.26; Luc % (Auto) 2; Lymphocytes # (A) 1.4 k/uL (1.0-4.8); Lymphocytes % (A) 13 %; MCH 24.7 pg (25.0-35.0); MCHC 31.3 g/dL (31.0-37.0); MCV 78.9 fL (80.0-100.0); Mean Platelet Volume 7.3; Monocytes # (A) 0.6 k/uL (0-1.0); Monocytes % (A) 6 %; Neutrophils # (A) 8.4 k/uL (1.3-7.7); Neutrophils % (A) 76 %; RBC 5.62 m/uL (3.80-5.40); RDW 14.4 % (11.5-15.5); WBC 11.1 k/uL (3.8-10.6); WBC (Perox) 11.78
[2016-11-16] MEDS: INSULIN LISPRO (humaLOG) 300 UNIT/3 ML VIAL SQ SCH ×4 (06:45→20:49)
[2016-11-16] MEDS: PANTOPRAZOLE 40 MG TABLET PO SCH (06:46)
[2016-11-16 06:53] LABS: Anion Gap 13 mmol/L; Blood Urea Nitrogen 14 mg/dL (7-17); Calcium 9.4 mg/dL (8.4-10.2); Carbon Dioxide 23 mmol/L (22-30); Chloride 107 mmol/L (98-107); Glucose 151 mg/dL (74-99); Non-African American GFR(MDRD) >60 (>60 ml/min/1.73 sqM); Potassium 4.3 mmol/L (3.5-5.1); Sodium 143 mmol/L (137-145)
[2016-11-16] MEDS: ASPIRIN 81 MG CHEW PO SCH (09:05)
[2016-11-16] MEDS: TICAGRELOR 90 MG TAB PO SCH ×2 (09:05→20:33)
[2016-11-16] MEDS: LISINOPRIL 10 MG TAB PO SCH (09:05)
[2016-11-16] MEDS: BACLOFEN 10 MG TAB PO SCH ×3 (09:06→20:33)
[2016-11-16] MEDS: METOPROLOL TARTRATE 50 MG TAB PO SCH ×4 (09:06→20:34)
[2016-11-16 11:44] LABS: Glucose,Whole Blood 152 mg/dL (75-99)
[2016-11-16] MEDS: FERROUS SULFATE 325 MG TAB PO SCH (11:58)
--- NOTE | 2016-11-16 12:06 | P.PN ---
Subjective Principal diagnosis: Anterior STEMI This is a pleasant 56-year-old -Micron[place] female patient who presented to the hospital with a chest discomfort and was diagnosed with acute anterior ST patient myocardial infarction. She underwent a heart catheterization and was found to have acute total occlusion of the ostial LAD which was opened and stented with a good angiographic results.I'll follow-up with the patient today, she denies having any chest pain or chest discomfort but she continues to have left arm discomfort.Hemodynamically she continues to be stable with sinus tachycardia.The echocardiogram showed severely impaired LV function with an ejection fraction of 20-25%. Patient has been encouraged today to be up ambulating in the hallway. I also had a lengthy discussion with the patient and her regarding LifeVest, for prevention of sudden cardiac . This will be ordered for the patient to be placed prior to her discharge home. We will increase her beta paco today to 3 times a day dose,for more optimal heart rate control. Have her ambulate in the hallway as much as tolerated today. Objective - Vital Signs Vital signs: Vital Signs Temp 97 F L 11/16/16 08:00 Pulse 117 H 11/16/16 08:00 Resp 16 11/16/16 10:26 BP 147/118 11/16/16 08:00 Pulse Ox 99 11/16/16 10:26 Intake & Output 11/15/16 11/16/16 11/16/16 18:59 06:59 18:59 Intake Total 60 200 Output Total 0 Balance 60 200 Weight 94.7 kg 88.9 kg Intake: Oral 60 200 Output: Urine 0 Other: Voiding Method Bedside Commode Bedside Commode # Voids 1 1 - Exam PHYSICAL EXAMINATION: HEENT: Head is atraumatic, normocephalic. Pupils equal, round. Neck is supple. There is no elevated jugular venous pressure. HEART EXAMINATION: Heart S1, S2 normal. No murmur or gallop heard. CHEST EXAMINATION: Lungs are clear to auscultation and precussion. No chest wall tenderness is noted on palpation or with deep breathing. ABDOMEN: Soft, nontender. Bowel sounds are heard. No organomegaly noted. EXTREMITIES: 2+ peripheral pulses with no evidence of peripheral edema and no calf tenderness noted. Complaints of left shoulder and arm discomfort worse with movement. NEUROLOGIC patient is awake, alert and oriented -3. . - Labs CBC & Chem 7: 11/16/16 06:15 11/16/16 06:15 Labs: Abnormal Lab Results - Last 24 Hours (Table) 11/15/16 11/15/16 11/16/16 Range/Units 16:41 21:01 06:15 WBC 11.1 H (3.8-10.6) k/uL RBC 5.62 H (3.80-5.40) m/uL MCV 78.9 L (80.0-100.0) fL MCH 24.7 L (25.0-35.0) pg Neutrophils # 8.4 H (1.3-7.7) k/uL Glucose (74-99) mg/dL POC Glucose (mg/dL) 165 H 158 H (75-99) mg/dL 11/16/16 11/16/16 11/16/16 Range/Units 06:15 06:39 11:39 WBC (3.8-10.6) k/uL RBC (3.80-5.40) m/uL MCV (80.0-100.0) fL MCH (25.0-35.0) pg Neutrophils # (1.3-7.7) k/uL Glucose 151 H (74-99) mg/dL POC Glucose (mg/dL) 144 H 152 H (75-99) mg/dL Assessment and Plan (1) ST elevation myocardial infarction (STEMI) of anterior wall Status: Acute (2) Presence of stent in LAD coronary artery Status: Acute (3) Sinus tachycardia Status: Acute (4) Ischemic cardiomyopathy Status: Acute (5) Diabetes Status: Acute (6) Hyperlipemia Status: Acute Plan: From cardiology's perspective, we will increase beta paco dose to 3 times a day. LifeVest will be ordered for the patient upon discharge. Today she's been encouraged. Ambulating in the hallway, plan for possible discharge home in 48-72 hours a stable. DNP note has been reviewed, I agree with a documented findings and plan of care. Patient was seen and examined.
--- NOTE | 2016-11-16 15:06 | P.PN ---
Subjective 56 yr old female with h/o of HTN is admitted to the hospital with chest pain, was noted to have STEMI, underwent a LAD PCI/PTCA. Currently states to have a left shoulder pain worse with movement above 90deg. NO other overnight events reported. 11/16/2016 Patient today states to be chest pain-free. However continues to have pain in her left shoulder which is secondary to osteoarthritis/tendinitis of the supraspinatus muscle. Patient continues to have sinus tachycardia. Objective - Vital Signs Vital signs: Vital Signs Temp 97.3 F L 11/16/16 12:00 Pulse 87 11/16/16 12:00 Resp 16 11/16/16 12:00 BP 136/70 11/16/16 13:41 Pulse Ox 97 11/16/16 12:00 Intake & Output 11/15/16 11/16/16 11/16/16 18:59 06:59 18:59 Intake Total 60 200 532 Output Total 0 Balance 60 200 532 Weight 94.7 kg 88.9 kg Intake: IV 10 .9 10 Oral 60 200 522 Output: Urine 0 Other: Voiding Method Bedside Commode Bedside Commode # Voids 1 1 3 # Bowel Movements 0 - Exam Gen: a & O times 3, in no distress. Lungs CTA, b/l no rhochi, wheezing, crackless HEart RRR, no murmurs appreciated. Abdomen soft non tender no organomegaly. Ext: no edema appreciated Musculoskeletal: tenderness anteriorly on the left shoulder. Supraspinatous tendonitis Neuro no focal motor or sensory deficits appreciated. - Labs CBC & Chem 7: 11/16/16 06:15 11/16/16 06:15 Labs: Abnormal Lab Results - Last 24 Hours (Table) 11/15/16 11/15/16 11/16/16 Range/Units 16:41 21:01 06:15 WBC 11.1 H (3.8-10.6) k/uL RBC 5.62 H (3.80-5.40) m/uL MCV 78.9 L (80.0-100.0) fL MCH 24.7 L (25.0-35.0) pg Neutrophils # 8.4 H (1.3-7.7) k/uL Glucose (74-99) mg/dL POC Glucose (mg/dL) 165 H 158 H (75-99) mg/dL 11/16/16 11/16/16 11/16/16 Range/Units 06:15 06:39 11:39 WBC (3.8-10.6) k/uL RBC (3.80-5.40) m/uL MCV (80.0-100.0) fL MCH (25.0-35.0) pg Neutrophils # (1.3-7.7) k/uL Glucose 151 H (74-99) mg/dL POC Glucose (mg/dL) 144 H 152 H (75-99) mg/dL Assessment and Plan Plan: 1. STEMI, s/p PTCA and PCI 2. HTN 3. Left shoulder tendonitis. 4. Sinus tachycardia 5. Iron deficiency anemia 6. Obesity. 7. Dyslipidemia Plan Groin care DAPT ACEI, Sima was increased. Patient will be monitored for another 24 hours at least according to cardiology. Thereafter a LifeVest will be recommended upon discharge till patient is able to have a repeat echocardiogram in order to evaluate apartment defibrillator.
[2016-11-16 17:01] LABS: Glucose,Whole Blood 163 mg/dL (75-99)
[2016-11-16] MEDS: ATORVASTATIN 80 MG TAB PO SCH (20:33)
[2016-11-16 20:45] LABS: Glucose,Whole Blood 215 mg/dL (75-99)
[2016-11-17] MEDS: HYDROcodone/APAP 5-325MG 1 EACH TAB PO PRN ×3 (02:56→15:08)
[2016-11-17 06:23] LABS: Glucose,Whole Blood 148 mg/dL (75-99)
[2016-11-17 06:23] LABS: Basophils % (A) 0 %; CH 24.9; CHCM 31.2; Eosinophils # (A) 0.3 k/uL (0-0.7); Eosinophils % (A) 4 %; HCT 40.3 % (34.0-46.0); HDW 2.42; HGB 12.6 gm/dL (11.4-16.0); Hypochromasia Slight; Luc # (Auto) 0.21; Luc % (Auto) 2; Lymphocytes # (A) 1.4 k/uL (1.0-4.8); Lymphocytes % (A) 16 %; MCHC 31.2 g/dL (31.0-37.0); Mean Platelet Volume 7.3; Monocytes # (A) 0.5 k/uL (0-1.0); Monocytes % (A) 6 %; Neutrophils # (A) 6.3 k/uL (1.3-7.7); Neutrophils % (A) 72 %; RBC 5.03 m/uL (3.80-5.40); RDW 14.3 % (11.5-15.5); WBC 8.7 k/uL (3.8-10.6)
[2016-11-17 06:32] LABS: Anion Gap 13 mmol/L; Blood Urea Nitrogen 20 mg/dL (7-17); Calcium 9.2 mg/dL (8.4-10.2); Carbon Dioxide 20 mmol/L (22-30); Chloride 108 mmol/L (98-107); Glucose 172 mg/dL (74-99); Non-African American GFR(MDRD) >60 (>60 ml/min/1.73 sqM); Potassium 4.5 mmol/L (3.5-5.1); Sodium 141 mmol/L (137-145)
[2016-11-17] MEDS: PANTOPRAZOLE 40 MG TABLET PO SCH (06:55)
[2016-11-17] MEDS: INSULIN LISPRO (humaLOG) 300 UNIT/3 ML VIAL SQ SCH ×3 (06:56→17:10)
[2016-11-17] MEDS: TICAGRELOR 90 MG TAB PO SCH (08:17)
[2016-11-17] MEDS: METOPROLOL TARTRATE 50 MG TAB PO SCH ×2 (08:18→15:08)
[2016-11-17] MEDS: ASPIRIN 81 MG CHEW PO SCH (08:18)
[2016-11-17] MEDS: LISINOPRIL 10 MG TAB PO SCH (08:18)
[2016-11-17] MEDS: BACLOFEN 10 MG TAB PO SCH ×2 (08:18→15:08)
[2016-11-17] MEDS: FERROUS SULFATE 325 MG TAB PO SCH (08:19)
[2016-11-17 10:37] VITALS: RESP 18
[2016-11-17 11:43] LABS: Glucose,Whole Blood 246 mg/dL (75-99)
[2016-11-17 13:04] VITALS: BP 111/70; PULSE 76; TEMP 96.9
--- NOTE | 2016-11-17 14:28 | P.DS ---
Providers Date of admission: 11/13/16 17:04 Expected date of discharge: 11/17/16 Attending physician: Ling Tello Consults: 11/13/16 18:41 Consult Physician Routine Consulting Provider: [facility] Consult Reason/Comments: Post Interventional patient Do you want consulting provider notified?: Already Contacted [facility]: 56 yr old female with h/o of HTN is admitted to the hospital with chest pain, was noted to have STEMI, underwent a LAD PCI/PTCA. Currently states to have a left shoulder pain worse with movement above 90deg. NO other overnight events reported. 11/16/2016 Patient today states to be chest pain-free. However continues to have pain in her left shoulder which is secondary to osteoarthritis/tendinitis of the supraspinatus muscle. Patient continues to have sinus tachycardia. 11/17/2016 Patient was stable on the day of discharge. Denies having any additional complains. - Exam Gen: a & O times 3, in no distress. Lungs CTA, b/l no rhochi, wheezing, crackless HEart RRR, no murmurs appreciated. Abdomen soft non tender no organomegaly. Ext: no edema appreciated Musculoskeletal: tenderness anteriorly on the left shoulder. Supraspinatous tendonitis Neuro no focal motor or sensory deficits appreciated. Assessment and Plan Plan: 1. STEMI, s/p PTCA and PCI 2. HTN 3. Left shoulder tendonitis. 4. Sinus tachycardia 5. Iron deficiency anemia 6. Obesity. 7. Dyslipidemia Plan Groin care DAPT ACEI, B paco, Life vest for sudden cardiac prevention till pt can have a repeat echocardiogram in 3 months and thereafter have discussion in regards to implantable defibrillator. Patient Condition at Discharge: Critical Plan - Discharge Summary New Discharge Prescriptions: Aspirin 81 mg PO DAILY #30 chew Atorvastatin [Lipitor] 80 mg PO HS #30 tab Lisinopril [Zestril] 10 mg PO DAILY #30 tab Metoprolol Tartrate [Lopressor] 50 mg PO TID #90 tab Nitroglycerin Sl Tabs [Nitrostat] 0.4 mg SUBLINGUAL Q5M PRN #25 tab PRN Reason: Chest Pain Ticagrelor [Brilinta] 90 mg PO BID #60 tab Discharge Medication List Baclofen [Lioresal] 10 mg PO BID 11/13/16 [History] Ferrous Sulfate [Iron (65 MG Elemental)] 325 mg PO DAILY 11/13/16 [History] metFORMIN HCL [Glucophage] 500 mg PO BID 11/13/16 [History] Aspirin 81 mg PO DAILY #30 chew 11/17/16 [Rx] Atorvastatin [Lipitor] 80 mg PO HS #30 tab 11/17/16 [Rx] Lisinopril [Zestril] 10 mg PO DAILY #30 tab 11/17/16 [Rx] Metoprolol Tartrate [Lopressor] 50 mg PO TID #90 tab 11/17/16 [Rx] Nitroglycerin Sl Tabs [Nitrostat] 0.4 mg SUBLINGUAL Q5M PRN #25 tab 11/17/16 [Rx ] Ticagrelor [Brilinta] 90 mg PO BID #60 tab 11/17/16 [Rx] Follow up Appointment(s)/Referral(s): Reji Quijano MD [Primary Care Provider] - 1-2 days Summer Burgos MD [STAFF PHYSICIAN] - 1 Week Discharge Disposition: HOME SELF-CARE
--- NOTE | 2016-11-17 14:56 | P.PN ---
Subjective Principal diagnosis: Anterior STEMI This is a pleasant 56-year-old -[place]ian female patient who presented to the hospital with a chest discomfort and was diagnosed with acute anterior ST patient myocardial infarction. She underwent a heart catheterization and was found to have acute total occlusion of the ostial LAD which was opened and stented with a good angiographic results.I'll follow-up with the patient today, she denies having any chest pain or chest discomfort but she continues to have left arm discomfort.Hemodynamically she continues to be stable with sinus tachycardia.The echocardiogram showed severely impaired LV function with an ejection fraction of 20-25%. Patient has been encouraged today to be up ambulating in the hallway. We will discharge the patient home today. She will be discharged with a LifeVest. Objective - Vital Signs Vital signs: Vital Signs Temp 96.9 F L 11/17/16 12:00 Pulse 76 11/17/16 12:00 Resp 18 11/17/16 12:00 BP 111/70 11/17/16 12:00 Pulse Ox 97 11/17/16 12:00 Intake & Output 11/16/16 11/17/16 11/17/16 18:59 06:59 18:59 Intake Total 650 660 Output Total 670 Balance 650 -10 Weight 90.1 kg Intake: IV 10 0 .9 10 0 Oral 640 660 Output: Urine 670 Other: Voiding Method Toilet Toilet # Voids 3 1 # Bowel Movements 0 - Exam PHYSICAL EXAMINATION: HEENT: Head is atraumatic, normocephalic. Pupils equal, round. Neck is supple. There is no elevated jugular venous pressure. HEART EXAMINATION: Heart S1, S2 normal. No murmur or gallop heard. CHEST EXAMINATION: Lungs are clear to auscultation and precussion. No chest wall tenderness is noted on palpation or with deep breathing. ABDOMEN: Soft, nontender. Bowel sounds are heard. No organomegaly noted. EXTREMITIES: 2+ peripheral pulses with no evidence of peripheral edema and no calf tenderness noted. Complaints of left shoulder and arm discomfort worse with movement. NEUROLOGIC patient is awake, alert and oriented -3. . - Labs CBC & Chem 7: 11/17/16 05:46 11/17/16 05:46 Labs: Abnormal Lab Results - Last 24 Hours (Table) 11/16/16 11/16/16 11/17/16 Range/Units 16:57 20:44 05:46 Chloride 108 H (98-107) mmol/L Carbon Dioxide 20 L (22-30) mmol/L BUN 20 H (7-17) mg/dL Glucose 172 H (74-99) mg/dL POC Glucose (mg/dL) 163 H 215 H (75-99) mg/dL 11/17/16 11/17/16 Range/Units 06:22 11:33 Chloride (98-107) mmol/L Carbon Dioxide (22-30) mmol/L BUN (7-17) mg/dL Glucose (74-99) mg/dL POC Glucose (mg/dL) 148 H 246 H (75-99) mg/dL Assessment and Plan (1) ST elevation myocardial infarction (STEMI) of anterior wall Status: Acute (2) Presence of stent in LAD coronary artery Status: Acute (3) Sinus tachycardia Status: Acute (4) Ischemic cardiomyopathy Status: Acute (5) Diabetes Status: Acute (6) Hyperlipemia Status: Acute Plan: From cardiology's perspective, we will continue current medications. Patient will be discharged home today with a LifeVest. A follow-up appointment will be made with Dr. VC Burgos in the office post discharge. She has been provided prescriptions for all of her medications. DNP note has been reviewed, I agree with a documented findings and plan of care. Patient was seen and examined.
[2016-11-17 16:43] LABS: Glucose,Whole Blood 167 mg/dL (75-99)
== END 2016-11-17 18:55 | disposition home or self-care (01) | DRG 246 ==
LOC: EC 16:50 → 6ICU 17:04 → 6SEL 11-15 13:53
PROVIDERS: ADMIT Hospitalist; ATTEND Hospitalist
PROC: B2111ZZ Fluoroscopy of Multiple Coronary Arteries using Low Osmolar Contrast (ICD-10-PCS; 2016-11-13)
PROC: 027034Z Dilation of Coronary Artery, One Artery with Drug-eluting Intraluminal Device, Percutaneous Approach (ICD-10-PCS; principal; 2016-11-13 17:01)
PROC: 02C03ZZ Extirpation of Matter from Coronary Artery, One Artery, Percutaneous Approach (ICD-10-PCS; 2016-11-13 17:01)
DX: I21.09 ST elevation (STEMI) myocardial infarction involving other coronary artery of anterior wall (principal); I50.21 Acute systolic (congestive) heart failure; I25.82 Chronic total occlusion of coronary artery; I11.0 Hypertensive heart disease with heart failure; I25.5 Ischemic cardiomyopathy; E11.9 Type 2 diabetes mellitus without complications; D50.9 Iron deficiency anemia, unspecified; E78.5 Hyperlipidemia, unspecified; I45.10 Unspecified right bundle-branch block; I25.10 Atherosclerotic heart disease of native coronary artery without angina pectoris; M19.012 Primary osteoarthritis, left shoulder; K58.9 Irritable bowel syndrome, unspecified; M75.92 Shoulder lesion, unspecified, left shoulder; E66.9 Obesity, unspecified; Z71.3 Dietary counseling and surveillance; Z68.33 Body mass index [BMI] 33.0-33.9, adult; Z87.891 Personal history of nicotine dependence; Z79.84 Long term (current) use of oral hypoglycemic drugs; Z79.899 Other long term (current) drug therapy; Z82.49 Family history of ischemic heart disease and other diseases of the circulatory system
CPT/HCPCS: 71010; 80048; 80053; 80061; 81001; 83036; 83735; 84484; 85025; 93005; 93306; 93454; 96374; 99291

== ENCOUNTER → 2017-06-13 | Outpatient (CLI) | payer MEDICARE ==
[2017-06-13 14:04] LABS: Anion Gap 12 mmol/L; Blood Urea Nitrogen 17 mg/dL (7-17); Carbon Dioxide 22 mmol/L (22-30); Chloride 111 mmol/L (98-107); Glucose 66 mg/dL (74-99); Non-African American GFR(MDRD) >60 (>60 ml/min/1.73 sqM); Potassium 4.3 mmol/L (3.5-5.1); Sodium 145 mmol/L (137-145)
[2017-06-13 23:20] LABS: Hemoglobin A1C 7.5 % (4.2-6.1)
== END ==
LOC: LABWHC1 13:20
PROVIDERS: ATTEND Internal Medicine
DX: E11.9 Type 2 diabetes mellitus without complications (principal)
CPT/HCPCS: 36415; 80048; 83036

== ENCOUNTER → 2017-07-17 | Outpatient (CLI) | payer MEDICARE ==
[2017-07-17 17:44] LABS: CH 27.3; HDW 2.38; HGB 14.6 gm/dL (11.4-16.0); MCH 26.9 pg (25.0-35.0); MCHC 32.4 g/dL (31.0-37.0); MCV 83.2 fL (80.0-100.0); RBC 5.41 m/uL (3.80-5.40); WBC 8.4 k/uL (3.8-10.6)
[2017-07-17 18:11] LABS: Anion Gap 13 mmol/L; Blood Urea Nitrogen 14 mg/dL (7-17); Calcium 9.6 mg/dL (8.4-10.2); Carbon Dioxide 21 mmol/L (22-30); Chloride 109 mmol/L (98-107); Glucose 98 mg/dL (74-99); Non-African American GFR(MDRD) >60 (>60 ml/min/1.73 sqM); Potassium 4.2 mmol/L (3.5-5.1); Sodium 143 mmol/L (137-145)
== END | disposition home or self-care (01) ==
LOC: LABWHC1 17:29
PROVIDERS: ATTEND Internal Medicine Clinical Cardiac Electrophysiology
DX: I25.5 Ischemic cardiomyopathy (principal); I25.10 Atherosclerotic heart disease of native coronary artery without angina pectoris
CPT/HCPCS: 36415; 80048; 85027

== ENCOUNTER 2017-07-26 08:30 | Day surgery (SDC) | payer MEDICARE ==
[2017-07-24 11:21] VITALS: BMI 32.9
[~2017-07-26 08:30] MED LIST: LACTATED RINGERS 1,000 ML IV SCH; SODIUM CHLORIDE 0.9% 1,000 ML IV SCH; ceFAZolin 1,000 MG in SODIUM CHLORIDE 0.9% IRRIGATIO 250 ML IRRIGATION ONE; ceFAZolin 2 GM in SODIUM CHLORIDE 0.9% 100 ML IVPB ONE
[2017-07-26 09:31] LABS: Glucose,Whole Blood 120 mg/dL (75-99)
[2017-07-26] MEDS ORDERED: MIDAZOLAM 2 MG/2 ML VIAL ONE (09:59)
[2017-07-26] MEDS ORDERED: fentaNYL (PF) 50 MCG/ML 2 ML AMP ONE (09:59)
[2017-07-26] MEDS ORDERED: diphenhydrAMINE 50 MG/ML 1 ML VIAL ONE (09:59)
[2017-07-26] MEDS ORDERED: PROPOFOL 10 MG/ML 20 ML VIAL IV ONE (09:59)
[2017-07-26] MEDS ORDERED: IODIXANOL 320 MG/ML 100 ML INTRAARTER ONE (10:42)
[2017-07-26] MEDS ORDERED: LIDOCAINE 1% INJ 10MG/ML (20 ML MDV) SQ ONE (10:44)
[2017-07-26] MEDS: LIDOCAINE 1% INJ 10MG/ML (20 ML MDV) SQ ONE ×2 (10:50→10:56)
[2017-07-26] MEDS ORDERED: ACETAMINOPHEN TAB 325 MG TAB PO PRN (11:40)
--- NOTE | 2017-07-26 12:28 | PCN ---
PROCEDURE NOTE Jacy Dempsey is a 57-year-old female, status post anterior wall infarct, status post LAD stenting, severe ischemic cardiomyopathy, ejection fraction is severely reduced, wide QRS with a right phfrui-[id number]-sutbj type one-to-one single-chamber ICD implantation for primary prevention of sudden cardiac . She has CHF class 2 to 3. Patient is brought the EP Lab in a fasting state. Written informed consent was obtained prior to the procedure. The left shoulder area is prepped and draped as per protocol. A 1% lidocaine was used for local anesthesia. A 4 cm incision was made prior to the deltopectoral groove. Incision was carried down to the level of the pectoralis muscle, a subfascial pocket was made, hemostasis which assured. The left axillary vein was accessed with a single point land appropriately-sized introducer sheath, a [employer] ICD lead was implanted. This was [employer] 4-site SG active fix 64 cm model #0293, serial #[id number]. This is positioned in the low RV septum and screwed in. R-waves were 6.7 mV, pacing threshold is 0.8 V at 0.4 mS, pacing impedance of 1036 ohms. Shock impedance 64 ohms. The device is in and the lead is connected to the device ([employer] Inogen extended longevity ICD DF4, VR model number D140, serial #[id number]. The lead was then placed in the subfascial pocket and the wound was closed in 3 layers and tested per protocol. The device is secured to the pectoralis muscle. The device was then programmed to programming, backup VVI pacing at 40 beats per minute. Appropriate antitachycardia pacing cardioversion defibrillation programmed. RESULTS: Successful single-chamber ICD implant for primary prevention of sudden cardiac for ischemic cardiomyopathy with CHF class 3, with wide QRS with a right bundle branch block pattern. PLAN: Continue cardiac medications for cardiomyopathy and heart failure and follow with the [facility] in 5 days and follow with Dr. Burgos within a month. MMODL / IJN: [id number] /
[2017-07-26] MEDS ORDERED: ACETAMINOPHEN IV (For NPO) 1,000 MG in EMPTY BAG 1 BAG IVPB ONE (14:30)
[2017-07-26] MEDS: HYDROcodone/APAP 5-325MG 1 EACH TAB PO PRN ×2 (14:35→19:05)
[2017-07-26] MEDS: METOPROLOL TARTRATE 50 MG TAB PO SCH ×2 (14:36→20:53)
[2017-07-26] MEDS: metFORMIN 500 MG TAB PO SCH (16:29)
[2017-07-26] MEDS: ceFAZolin 2 GM in SODIUM CHLORIDE 0.9% 100 ML IVPB SCH ×2 (16:29→21:50)
--- NOTE | 2017-07-26 16:52 | LTR ---
Date: July 26, 2017 To: Dr. Quijano RE: Jacy Dempsey (1960) Dear Dr. Quijano, I had the pleasure seeing Jacy Dempsey in electrophysiology followup. Jacy underwent a single-chamber ICD implantation for primary prevention of sudden cardiac . As you know, she has severe ischemic cardiomyopathy that has not improved despite percutaneous revascularization and appropriate medical treatments for several months now. She underwent the procedure without any acute complications and will follow up with you and Dr. Burgos as before. Thank you for entrusting me with the care of your patient. Warm regards. Sincerely, Archie Burden M.D. GILMAR / SAVANNA: [id number] /
[2017-07-26 17:15] LABS: Glucose,Whole Blood 102 mg/dL (75-99)
[2017-07-26] MEDS: BACLOFEN 10 MG TAB PO SCH (20:53)
[2017-07-26 20:56] LABS: Glucose,Whole Blood 181 mg/dL (75-99)
[2017-07-27] MEDS: HYDROcodone/APAP 5-325MG 1 EACH TAB PO PRN ×3 (00:05→11:04)
[2017-07-27] MEDS: ceFAZolin 2 GM in SODIUM CHLORIDE 0.9% 100 ML IVPB SCH ×2 (03:19→10:15)
[2017-07-27 06:56] LABS: Glucose,Whole Blood 122 mg/dL (75-99)
[2017-07-27] MEDS: metFORMIN 500 MG TAB PO SCH (08:06)
[2017-07-27] MEDS: BACLOFEN 10 MG TAB PO SCH (08:06)
--- NOTE | 2017-07-27 08:09 | XR ---
EXAMINATION TYPE: XR chest 2V DATE OF EXAM: 07/27/2017 COMPARISON: 11/14/2016 HISTORY: 56-year-old female CHF TECHNIQUE: Frontal and lateral views FINDINGS: The heart is mildly enlarged. Aorta within normal limits. Mild diffuse interstitial and vascular prom inence slightly improved from prior. Left anterior chest wall AICD generator with right ventricular l ead. No consolidation or significant pleural effusion. IMPRESSION: Residual mild pulmonary vascular congestion slightly improved from prior.
[2017-07-27 08:15] VITALS: RESP 18; TEMP 97.5
[2017-07-27] MEDS ORDERED: CLOPIDOGREL 75 MG TAB PO SCH (09:00)
[2017-07-27] MEDS ORDERED: ATORVASTATIN 80 MG TAB PO SCH (09:00)
[2017-07-27] MEDS ORDERED: ASPIRIN 81 MG PO SCH (09:00)
[2017-07-27] MEDS ORDERED: LISINOPRIL 10 MG TAB PO SCH (09:00)
[2017-07-27] MEDS: METOPROLOL TARTRATE 50 MG TAB PO SCH (09:32)
--- NOTE | 2017-07-27 11:20 | P.DS ---
Providers Attending physician: Archie Burden Primary care physician: Izaiah Nehemiah [facility] Course: Patient is doing well. She has very mild discomfort in the ICD site. This is healed well there is minimal soakage no sore swelling. She denies any chest discomfort dizziness or lightheadedness. She is comfortable light. Device interrogation today is within normal limits. R wave sensing has improved. Thresholds were excellent and chest x-ray did not show any pneumothorax. Vitals are stable except her blood pressure is 101/54 mmHg and she does complain of dizziness at home off and on. She is on metoprolol 25 mg 3 times a day on examination breath sounds are normal no rhonchi no crackles heart sounds. 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 Burgos as scheduled Reduce metoprolol to 25 mg twice daily instead of 3 times a day and take lisinopril at noontime and this was discussed with the nurse also. Plan - Discharge Summary New Discharge Prescriptions: Continue RX: metFORMIN HCL [Glucophage] 500 mg PO BID RX: Ferrous Sulfate [Iron (65 MG Elemental)] 325 mg PO DAILY RX: Baclofen [Lioresal] 10 mg PO BID RX: Aspirin 81 mg PO DAILY #30 chew RX: Lisinopril [Zestril] 10 mg PO DAILY #30 tab RX: Metoprolol Tartrate [Lopressor] 50 mg PO TID #90 tab RX: Nitroglycerin Sl Tabs [Nitrostat] 0.4 mg SUBLINGUAL Q5M PRN #25 tab PRN Reason: Chest Pain RX: Clopidogrel [Plavix] 75 mg PO DAILY RX: Atorvastatin [Lipitor] 80 mg PO DAILY Discharge Medication List RX: Baclofen [Lioresal] 10 mg PO BID 11/13/16 [History] RX: Ferrous Sulfate [Iron (65 MG Elemental)] 325 mg PO DAILY 11/13/16 [History] RX: metFORMIN HCL [Glucophage] 500 mg PO BID 11/13/16 [History] RX: Aspirin 81 mg PO DAILY #30 chew 11/17/16 [Rx] RX: Lisinopril [Zestril] 10 mg PO DAILY #30 tab 11/17/16 [Rx] RX: Metoprolol Tartrate [Lopressor] 50 mg PO TID #90 tab 11/17/16 [Rx] RX: Nitroglycerin Sl Tabs [Nitrostat] 0.4 mg SUBLINGUAL Q5M PRN #25 tab [Rx] RX: Atorvastatin [Lipitor] 80 mg PO DAILY 07/26/17 [History] RX: Clopidogrel [Plavix] 75 mg PO DAILY 07/26/17 [History] Follow up Appointment(s)/Referral(s): Summer Burgos MD [STAFF PHYSICIAN] - 09/12/17 3:45 pm (@ [facility] ) Activity/Diet/Wound Care/Special Instructions: Device Clinic- Tuesday, August 01, 2017 3:30 pm PATIENT EDUCATION MATERIAL Instructions following a heart rhythm device implant. 1. Keep dressing DRY for ONE week. You may cover the area with Saran or Cling Wrap, prior to a shower. 2. The dressing will be removed after one week in the Device Clinic @ [facility]. Absorbable sutures were used to close the wound. 3. Avoid raising the [left] arm above the shoulder level. [6 week restriction] 4. Avoid arm movements, like backscratching, rubbing the head, or pulling on a cord. (6 weeks restriction) 5. Gentle range of motion movements of the shoulder, closest to the incision should be performed to avoid a frozen shoulder. (Pendulum exercises of the shoulder) 6. The opposite arm may be used freely. 7. Avoid driving for 7 days. 8. Avoid activities such as golfing, swimming, weed whacking, lifting more than 10 pounds weight, bowling, gymnastics and weight training/lifting. (6 weeks restriction) 9. Activities such as wood chopping with an axe, pull-ups in the gymnasium, power lifting, arc-welding, being close to home induction cooktops will always be a problem. In case of any problems, please call [facility], [place], @ [phone], Attention: Device Clinic
[2017-07-27 11:26] VITALS: BP 92/55; PULSE 68
[2017-07-27] MEDS ORDERED: LISINOPRIL 5 MG TAB PO SCH (12:00)
[2017-07-27] MEDS ORDERED: METOPROLOL TARTRATE 50 MG TAB PO SCH (21:00)
== END 2017-07-27 12:18 | disposition home or self-care (01) ==
LOC: CATHEP 08:30 → 3OBS 11:34 → CATHEP 07-27 12:18
PROVIDERS: ATTEND Internal Medicine Clinical Cardiac Electrophysiology
DX: I25.5 Ischemic cardiomyopathy (principal); I45.10 Unspecified right bundle-branch block; Z00.6 Encounter for examination for normal comparison and control in clinical research program; Z87.891 Personal history of nicotine dependence; I50.9 Heart failure, unspecified; I11.0 Hypertensive heart disease with heart failure; I25.10 Atherosclerotic heart disease of native coronary artery without angina pectoris; Z95.5 Presence of coronary angioplasty implant and graft; I25.2 Old myocardial infarction; E11.9 Type 2 diabetes mellitus without complications; E78.2 Mixed hyperlipidemia; Z79.84 Long term (current) use of oral hypoglycemic drugs; Z82.49 Family history of ischemic heart disease and other diseases of the circulatory system; Z79.02 Long term (current) use of antithrombotics/antiplatelets; Z79.82 Long term (current) use of aspirin; Z79.899 Other long term (current) drug therapy; Z88.6 Allergy status to analgesic agent
CPT/HCPCS: 33249; 71020; C1777; C1722; J2250; J1200; Q9967; J0690 ×3; J2001; J3010; J2704

== ENCOUNTER → 2019-01-01 | Outpatient (CLI) | payer MEDICARE ==
[2019-01-01 16:06] LABS: ALT 23 U/L (8-44); AST 23 U/L (13-35); Albumin/Globulin Ratio 1.95 (1.60-3.17); Alkaline Phosphatase 89 U/L (41-126); Carbon Dioxide 27.1 mmol/L (21.6-31.8); Chloride 108 mmol/L (96-109); Cholesterol 119 mg/dL (0-200); Globulin 2.2 g/dL (1.6-3.3); Potassium 4.2 mmol/L (3.5-5.5); Sodium 144 mmol/L (135-145); Total Bilirubin 0.5 mg/dL (0.2-1.2); Total Protein 6.5 g/dL (6.2-8.2); Triglycerides <50.0 mg/dL (0.0-149.0); VLDL Calculation 9.98 mg/dL (5.00-40.00)
[2019-01-01 19:09] LABS: Hemoglobin A1C 7.7 % (4.0-6.0)
== END | disposition home or self-care (01) ==
LOC: LABWHC1 08:46
PROVIDERS: ATTEND Internal Medicine
DX: E11.9 Type 2 diabetes mellitus without complications (principal); I10 Essential (primary) hypertension; E78.5 Hyperlipidemia, unspecified
CPT/HCPCS: 36415; 80051; 80061; 80076; 82565; 83036; 84520